=== PATIENT | female | born 1960 | race Caucasian/White ===

== ENCOUNTER → 2017-10-25 | Day surgery (SDC) | payer OTHER ==
--- NOTE | 2017-10-25 18:28 | Operative Report ---
Operative/Inv Procedure Report Surgery Date: 10/25/17 Name of Procedure: left URS with retrograde pyelogram, stent placement Pre-Operative Diagnosis: left flank pain Post-Operative Diagnosis: same Estimated Blood Loss: scant Surgeon/Senior Piping Designer: Julieta Rose MD Anesthesia: laryngeal mask airway Drains: 6x24cm stent Specimens: none Complications: none Condition: stable Operative Indication: left flank pain Operative/Procedure Note Note: 57-year-old female with a history of kidney stones with left flank pain. Renal ultrasound was within normal limits with no evidence of any stones or hydronephrosis however on KUB she had a questionable left distal 3 mm ureteral stone versus phlebolith. Given her left flank pain she wished to have this addressed with surgery. She was given the risks benefits and alternatives of possible stent removal versus no stone present. All questions were answered and the consent was signed. She was taken to the operating room placed on the operating table in supine position. Timeout was performed. IV antibiotics were infused. LMA anesthesia was started. Patient was then placed in the dorsolithotomy position and prepped and draped in standard sterile fashion. Cystoscopy was performed and the bladder was globally inspected. Bilateral ureteral orifices were easily identified. Thwas no lesions or abnormalities or tumors noted in the bladder globally. Left ureteral orifice was cannulated with a sensor guidewire. A semirigid ureteroscope was then placed into the ureter up to the UPJ and no stone was appreciated. As result the superstiff wire was then placed into the ureteroscope and the ureteroscope was removed. A flexible digital scope was then placed over the Super Stiff wire and the wire was removed. The flexible scope was then used to examine the entire renal pelvis and and calyces. The upper middle and lower lobe calyces were devoid of any stones or abnormalities. Retrograde pyelogram was performed and again no filling defects were seen or abnormalities and each of the calyces were examined. The cysts the ureteroscope was then removed as the ureter was examined on the way out. Again no stones were appreciated. The remaining sensor guidewire was then used to place a 6 x 24 cm ureteral stent using the cystoscope. Fluoroscopy showed that the stent was in good position and the wire was removed. KUB was performed. Bladder was empty patient tolerated procedure well. Findings: no ureteral or kidney stones
--- NOTE | 2017-10-26 17:35 | RADIOLOGY REPORT ---
EXAMINATION: XR ABDOMEN CLINICAL INDICATION: Left ureteroscopy and stent placement. COMPARISON: KUB from 09/24/2017 TECHNIQUE: Intraoperative fluoroscopic imaging of the left abdomen was utilized. Number of saved images: 5 Fluoroscopy time: 7.3 seconds. Dose: 31.55 mrad FINDINGS: Please refer to the operative report. Retrograde ureterography/ureteroscopy was performed. No hydronephrosis is identified on the submitted images. A 3 mm calcification described on the KUB of 09/24/2017 is shown to represent a phlebolith on these images. A left ureteral stent was placed. IMPRESSION: Fluoroscopic imaging of the abdomen was utilized at time of the ureteroscopy and stent placement.
== END ==
LOC: STS 02:36
DX: Z87.442 Personal history of urinary calculi (principal); M54.9 Dorsalgia, unspecified; R10.9 Unspecified abdominal pain; Z86.711 Personal history of pulmonary embolism
CPT/HCPCS: 74018; C2617; J0131; J0690; J2250